=== PATIENT | female | born 2000 | race Caucasian/White ===

== ENCOUNTER 2022-05-09 15:47 | Emergency (ER) | payer OTHER ==
[~2022-05-09] VITALS: Ht 139.7 cm; Wt 50.1 kg
[2022-05-09 16:27] LABS: BASO # 0.1 10^3/uL (0.0-0.2); BASO % 0.6 % (0.0-1.0); EOS # 0.1 10^3/uL (0.0-0.5); EOS % 0.7 % (0.0-3.0); HEMOGLOBIN 13.6 g/dl (12.0-15.5); LYMPH # 1.9 10^3/uL (1.5-5.0); LYMPH % 22.6 % (24.0-44.0); MEAN CORPUSCULAR HEMOGLOBIN 30.9 pg (27.0-33.0); MEAN CORPUSCULAR HGB CONC 33.2 g/dl (32.0-36.5); MEAN CORPUSCULAR VOLUME 93.2 fl (80.0-96.0); MONO # 0.7 10^3/uL (0.0-0.8); MONO % 8.2 % (2.0-8.0); NEUTROPHILS # 5.7 10^3/uL (1.5-8.5); NEUTROPHILS % 67.5 % (36.0-66.0); PLATELET COUNT, AUTOMATED 178 10^3/uL (150-450); WHITE BLOOD COUNT 8.4 10^3/uL (4.0-10.0)
[2022-05-09 16:52] LABS: LIPASE 21 U/L (12-53)
[2022-05-09 16:58] LABS: ALBUMIN 4.4 G/DL (3.2-5.2); ALKALINE PHOSPHATASE 84 U/L (46-116); ALT/SGPT < 9 U/L (7.0-40); AST/SGOT 20 U/L (<34); BILIRUBIN,DIRECT 0.2 MG/DL (<0.4); BILIRUBIN,TOTAL 0.6 MG/DL (0.3-1.2); BLOOD UREA NITROGEN 7 MG/DL (9-23); CALCIUM LEVEL 9.1 MG/DL (8.5-10.1); CARBON DIOXIDE LEVEL 28 MMOL/L (20-31); CHLORIDE LEVEL 103 MMOL/L (98-107); CREATININE FOR GFR 0.56 MG/DL (0.55-1.30); GLOMERULAR FILTRATION RATE > 60.0 (>60); GLUCOSE, FASTING 83 MG/DL (60-100); POTASSIUM SERUM 3.9 MMOL/L (3.5-5.1); SODIUM LEVEL 137 MMOL/L (136-145); TOTAL PROTEIN 7.5 G/DL (5.7-8.2)
[2022-05-09 17:21] LABS: HCG, SERUM QUALITATIVE NEGATIVE (NEGATIVE)
[2022-05-09] MEDS ORDERED: NS 1,000 ML IV ONE (17:25)
[2022-05-09] MEDS ORDERED: KETOROLAC 30 MG/ML 1ML VIAL IV ONE (17:25)
[2022-05-09] MEDS ORDERED: ONDANSETRON 4MG 2ML VIAL IV ONE (17:25)
[2022-05-09] MEDS: READI-CAT 2 PO SCH ×2 (17:58→19:08)
[2022-05-09] MEDS ORDERED: CIPROFLOXACIN 500MG TABLET PO ONE (21:20)
[2022-05-09] MEDS ORDERED: CIPR-249 PO (21:20)
[2022-05-09 21:30] VITALS: BP 116/75
== END 2022-05-09 21:30 | disposition home or self-care (01) ==
LOC: M ED 15:47
DX: N10 Acute pyelonephritis (principal); E06.3 Autoimmune thyroiditis; Z91.018 Allergy to other foods; Z91.041 Radiographic dye allergy status
CPT/HCPCS: 74176; 80048; 80076; 81001; 83690; 84703; 85025; 87088; 87186; 96374; 96375; 99284; J1885; J2405

== ENCOUNTER → 2022-08-17 | Outpatient (CLI) | payer OTHER ==
[~2022-08-17] MED LIST: CIPR-249 PO
[2022-08-17 17:38] LABS: HEMATOCRIT 39.2 % (36.0-47.0); HEMOGLOBIN 13.2 g/dl (12.0-15.5); MEAN CORPUSCULAR HEMOGLOBIN 31.5 pg (27.0-33.0); MEAN CORPUSCULAR HGB CONC 33.7 g/dl (32.0-36.5); MEAN CORPUSCULAR VOLUME 93.6 fl (80.0-96.0); PLATELET COUNT, AUTOMATED 226 10^3/uL (150-450); RED BLOOD COUNT 4.19 10^6/uL (4.00-5.40); WHITE BLOOD COUNT 8.9 10^3/uL (4.0-10.0)
[2022-08-17 17:44] LABS: THYROID STIMULATING HORMONE 4.691 uIU/ML (0.55-4.78)
[2022-08-17 17:46] LABS: FREE T4 0.89 NG/DL (0.89-1.76)
[2022-08-17 20:14] LABS: GC DNA AMPLIFICATION NEGATIVE (NEGATIVE)
[2022-08-17 21:14] LABS: HIV 1&2 SCREEN NEGATIVE (NEGATIVE)
== END ==
LOC: M PLALAB 15:14
PROVIDERS: ATTEND Advanced Practice Midwife
DX: Z34.91 Encounter for supervision of normal pregnancy, unspecified, first trimester (principal)

== ENCOUNTER → 2022-09-01 | Outpatient (CLI) | payer OTHER | LOC: M WHC 10:53 | PROVIDERS: ATTEND Advanced Practice Midwife | DX: O20.0 Threatened abortion (principal); Z3A.14 14 weeks gestation of pregnancy ==

== ENCOUNTER → 2022-10-05 | Outpatient (CLI) | payer OTHER | LOC: M WHC 14:22 | PROVIDERS: ATTEND Advanced Practice Midwife | DX: O32.1XX0 Maternal care for breech presentation, not applicable or unspecified (principal); Z3A.19 19 weeks gestation of pregnancy ==

== ENCOUNTER → 2022-10-20 | Outpatient (REF) | payer OTHER ==
[2022-10-20 19:09] LABS: THYROID STIMULATING HORMONE 3.503 uIU/ML (0.55-4.78)
[2022-10-20 19:11] LABS: FREE T4 0.88 NG/DL (0.89-1.76)
== END ==
LOC: M SFHCPLAZ 17:08
PROVIDERS: ATTEND Obstetrics & Gynecology
DX: E03.9 Hypothyroidism, unspecified (principal)

== ENCOUNTER → 2022-12-21 | Outpatient (CLI) | payer OTHER ==
[2022-12-21 13:34] LABS: HEMATOCRIT 34.2 % (36.0-47.0); HEMOGLOBIN 11.3 g/dl (12.0-15.5); MEAN CORPUSCULAR VOLUME 93.7 fl (80.0-96.0); PLATELET COUNT, AUTOMATED 199 10^3/uL (150-450); RED BLOOD COUNT 3.65 10^6/uL (4.00-5.40); WHITE BLOOD COUNT 7.1 10^3/uL (4.0-10.0)
[2022-12-21 15:06] LABS: GC DNA AMPLIFICATION NEGATIVE (NEGATIVE)
== END ==
LOC: M PLALAB 08:05
PROVIDERS: ATTEND Obstetrics & Gynecology
DX: Z34.92 Encounter for supervision of normal pregnancy, unspecified, second trimester (principal)

== ENCOUNTER → 2022-12-21 | Outpatient (CLI) | payer OTHER ==
[2022-12-21 13:41] LABS: FREE T4 0.83 NG/DL (0.89-1.76); THYROID STIMULATING HORMONE 4.172 uIU/ML (0.55-4.78)
== END ==
LOC: M PLALAB 08:06
PROVIDERS: ATTEND Advanced Practice Midwife
DX: O99.280 Endocrine, nutritional and metabolic diseases complicating pregnancy, unspecified trimester (principal)

== ENCOUNTER → 2023-02-01 | Outpatient (REF) | payer OTHER | LOC: M SFHCWAGY 13:22 | PROVIDERS: ATTEND Obstetrics & Gynecology | DX: Z36.89 Encounter for other specified antenatal screening (principal); Z3A.36 36 weeks gestation of pregnancy ==

== ENCOUNTER → 2023-02-15 | Outpatient (CLI) | payer OTHER ==
[2023-02-15 16:10] LABS: HEMOGLOBIN 10.6 g/dl (12.0-15.5); MEAN CORPUSCULAR HEMOGLOBIN 28.3 pg (27.0-33.0); MEAN CORPUSCULAR HGB CONC 32.1 g/dl (32.0-36.5); PLATELET COUNT, AUTOMATED 190 10^3/uL (150-450); RED BLOOD COUNT 3.75 10^6/uL (4.00-5.40); WHITE BLOOD COUNT 8.5 10^3/uL (4.0-10.0)
[2023-02-15 16:14] LABS: URIC ACID 3.6 MG/DL (3.1-7.8)
[2023-02-15 16:16] LABS: LDH LACTATE DEHYDROGENASE 195 U/L (120-246)
[2023-02-15 16:17] LABS: ALT/SGPT < 9 U/L (7.0-40); AST/SGOT 18 U/L (<34); BILIRUBIN,TOTAL 0.3 MG/DL (0.3-1.2); CREATININE FOR GFR 0.41 MG/DL (0.55-1.30); GLOMERULAR FILTRATION RATE > 60.0 (>60)
[2023-02-15 16:30] LABS: TOTAL PROTEIN,RANDOM URINE 11.3 MG/DL (0.0-14.0)
[2023-02-15 16:35] LABS: CREATININE,RANDOM URINE 59.9 MG/DL
== END ==
LOC: M PLALAB 13:01
PROVIDERS: ATTEND Obstetrics & Gynecology
DX: O16.9 Unspecified maternal hypertension, unspecified trimester (principal)

== ENCOUNTER 2023-02-25 16:39 | Inpatient (IN) | payer OTHER ==
[~2023-02-25] VITALS: Ht 139.7 cm; Wt 68.9 kg
[2023-02-25] VITALS (12 sets, daily range): BP systolic 106–159; BP diastolic 64–92; O2SAT 98
[~2023-02-25 16:39] MED LIST changes: +ACET-897 PO; +LEVO50TA5 PO; +LEXA1TAB PO; +PRENTAB9 PO
[2023-02-25] MEDS ORDERED: LACTATED RINGER'S 1000 ML IV STA (16:53)
[2023-02-25] MEDS ORDERED: LR 1,000 ML IV SCH (16:55)
[2023-02-25] MEDS ORDERED: OXYTOCIN INJ 10UNITS/ML 1ML VIAL IM PRN (16:55)
[2023-02-25] MEDS ORDERED: METHYLERGONOVINE MALEATE 0.2MG/ML 1ML VIAL IM PRN (16:55)
[2023-02-25] MEDS ORDERED: CARBOPROST TROMETHAMINE 250 MCG/ML AMP IM PRN (16:55)
[2023-02-25] MEDS ORDERED: TRANEXAMIC ACID INJection 1,000 MG in NS 100 ML IV PRN (16:55)
[2023-02-25] MEDS ORDERED: OXYTOCIN DRIP 30 UNITS in IV 1 EA IV PRN (16:55)
[2023-02-25] MEDS ORDERED: LIDOCAINE 1% MDV 20ML VIAL INFIL PRN (16:55)
[2023-02-25] MEDS ORDERED: OXYTOCIN DRIP 30 UNITS in IV 1 EA IV SCH (17:10)
[2023-02-25] MEDS ORDERED: HOME MED LIST COMPLETE! XX SCH (17:15)
[2023-02-25] MEDS ORDERED: ALBU6.7H6 INH (17:15)
[2023-02-25 18:08] LABS: HEMATOCRIT 33.9 % (36.0-47.0); HEMOGLOBIN 10.9 g/dl (12.0-15.5); MEAN CORPUSCULAR HEMOGLOBIN 27.5 pg (27.0-33.0); MEAN CORPUSCULAR HGB CONC 32.2 g/dl (32.0-36.5); MEAN CORPUSCULAR VOLUME 85.6 fl (80.0-96.0); PLATELET COUNT, AUTOMATED 191 10^3/uL (150-450); RED BLOOD COUNT 3.96 10^6/uL (4.00-5.40); WHITE BLOOD COUNT 9.4 10^3/uL (4.0-10.0)
[2023-02-25] MEDS ORDERED: ACETAMINOPHEN 500 MG TAB PO PRN (18:20)
[2023-02-25] MEDS ORDERED: BUTORPHANOL 2 MG/ML 1ML VIAL IV ONE (23:20)
[2023-02-25] MEDS ORDERED: PROMETHAZINE 25MG/ML 1ML VIAL IV ONE (23:20)
[2023-02-26 00:24] VITALS: BP 135/88
[2023-02-26 00:39] VITALS: BP 138/95
[2023-02-26] MEDS ORDERED: IBUPROFEN 600MG TAB PO PRN (00:40)
[2023-02-26] MEDS ORDERED: METHYLERGONOVINE MALEATE 0.2 MG TAB PO PRN (00:40)
[2023-02-26] MEDS ORDERED: ANUSOL HC CREAM 30GM TOP PRN (00:40)
[2023-02-26] MEDS ORDERED: DIBUCAINE 1% OINTMENT 30GM TOP PRN (00:40)
[2023-02-26] MEDS ORDERED: RHOGAM 300MCG (1500IU) INJ IM SCH (00:40)
[2023-02-26] MEDS ORDERED: MOM 30ML SUSPENSION UDC PO PRN (00:40)
[2023-02-26 00:54] VITALS: BP 133/95
[2023-02-26 01:19] VITALS: BP 140/86
[2023-02-26] MEDS: IBUPROFEN 800 MG TAB PO PRN ×3 (01:50→19:53)
[2023-02-26] MEDS: ACETAMINOPHEN 500 MG TAB PO PRN ×2 (01:50→14:48)
[2023-02-26 06:00] VITALS: BP 129/79; O2SAT 97
[2023-02-26] MEDS: LEVOTHYROXINE 50MCG TABLET (0.05MG) PO SCH (06:30)
[2023-02-26] MEDS: ACETAMINOPHEN TAB 650MG DOSE (2X325MG) PO PRN ×2 (06:37→21:04)
[2023-02-26] MEDS: PRENATAL VITAMINS CHEWABLE TABLET PO SCH (08:49)
[2023-02-26] MEDS: ESCITALOPRAM OXALATE 10 MG TAB (LEXAPRO) PO SCH (08:49)
[2023-02-26] MEDS: DOCUSATE SODIUM 100MG CAPSULE PO SCH ×2 (08:50→19:53)
[2023-02-26 18:00] VITALS: BP 129/82; O2SAT 100
[2023-02-27] MEDS: LEVOTHYROXINE 50MCG TABLET (0.05MG) PO SCH (05:27)
[2023-02-27 06:00] VITALS: BP 120/77; O2SAT 98
[2023-02-27] MEDS: ACETAMINOPHEN 500 MG TAB PO PRN (08:21)
[2023-02-27] MEDS: DOCUSATE SODIUM 100MG CAPSULE PO SCH (08:21)
[2023-02-27] MEDS: PRENATAL VITAMINS CHEWABLE TABLET PO SCH (08:21)
[2023-02-27] MEDS: ESCITALOPRAM OXALATE 10 MG TAB (LEXAPRO) PO SCH (08:21)
[2023-02-27] MEDS ORDERED: IBUP-1022 PO (11:20)
[2023-02-28] MEDS ORDERED: MEASLES,MUMPS,RUBELLA VACCINE INJ (MMR-II) SC.IMMUN ONE (09:00)
== END 2023-02-27 14:20 | disposition home or self-care (01) | DRG 560 ==
LOC: M LDI 16:39 → M OBS 02-26 02:18
PROVIDERS: ADMIT Advanced Practice Midwife; ATTEND Advanced Practice Midwife
PROC: 3E033VJ Introduction of Other Hormone into Peripheral Vein, Percutaneous Approach (ICD-10-PCS; 2023-02-25)
PROC: 10907ZC Drainage of Amniotic Fluid, Therapeutic from Products of Conception, Via Natural or Artificial Opening (ICD-10-PCS; 2023-02-25)
PROC: 10E0XZZ Delivery of Products of Conception, External Approach (ICD-10-PCS; principal; 2023-02-26)
DX: O99.284 Endocrine, nutritional and metabolic diseases complicating childbirth (principal); O99.344 Other mental disorders complicating childbirth; F32.A Depression, unspecified; E03.9 Hypothyroidism, unspecified; O99.52 Diseases of the respiratory system complicating childbirth; J45.909 Unspecified asthma, uncomplicated; Z3A.39 39 weeks gestation of pregnancy; Z37.0 Single live birth; Z91.041 Radiographic dye allergy status; Z91.018 Allergy to other foods; Z91.013 Allergy to seafood; Z79.890 Hormone replacement therapy; Z79.899 Other long term (current) drug therapy

== ENCOUNTER → 2024-06-05 | Outpatient (CLI) | payer MEDICAID, OTHER ==
[~2024-06-05] MED LIST changes: +ALBU6.7H6 INH; +IBUP-1022 PO
[2024-06-05 14:53] LABS: Trichomonas vaginalis (AMP) NOT DETECTED (NEGATIVE)
[2024-06-05 15:17] LABS: GC DNA AMPLIFICATION NEGATIVE (NEGATIVE)
== END ==
LOC: M PLALAB 12:32
PROVIDERS: ATTEND Nurse Practitioner Family
DX: Z12.4 Encounter for screening for malignant neoplasm of cervix (principal); R10.2 Pelvic and perineal pain; Z11.3 Encounter for screening for infections with a predominantly sexual mode of transmission; Z80.3 Family history of malignant neoplasm of breast; Z80.41 Family history of malignant neoplasm of ovary; Z80.0 Family history of malignant neoplasm of digestive organs